=== PATIENT | male | born 1935 | race Hispanic/Latino ===

== ENCOUNTER 2021-01-30 07:39 | Day surgery (SDC) | payer OTHER ==
[2021-01-25 16:59] LABS: Albumin 3.6 g/dL (3.4-5.0); Bilirubin Direct 0.1 mg/dL (0-0.2); Bilirubin Total 0.3 mg/dL (0.2-1.0); Potassium 4.7 mmol/L (3.5-5.1); Protein, Total 8.3 g/dL (6.4-8.2)
[2021-01-25 17:03] LABS: Basophils % 0.4 % (0-1.3); Lymphocytes % 29.9 % (15.3-44.8); MPV 7.7 fL (7.6-11.3); RBC Red Blood Cell Count 3.86 M/uL (4.33-5.43)
--- NOTE | 2021-01-25 17:06 | RAD REPORT ---
EXAM DESCRIPTION: Brennen Velez (2 Views)01/25/2021 4:29 pm CLINICAL HISTORY: Preop gallbladder surgery COMPARISON: 2009 FINDINGS: The lungs appear clear of acute infiltrate. The heart is moderately enlarged IMPRESSION: No acute abnormalities displayed
--- NOTE | 2021-01-28 07:10 | EKG ---
Test Date: 2021-01-25 Test Time: 15:01:50 Nurse Monitoring: FRANCESCA MEASUREMENT RESULTS: Intervals: Rate: 76 OK: 344 QRSD: 138 QT: 426 QTc: 479 [place]: P: -4 OK: 344 QRS: -40 T: 7 INTERPRETIVE STATEMENTS: Sinus rhythm with 1st degree AV block with premature atrial complexes with aberrant conduction Left axis deviation Right bundle branch block Inferior infarct, age undetermined Abnormal ECG Compared to ECG 07/25/2009 18:19:22 Atrial premature complex(es) now present Aberrant conduction of supraventricular beat(s) now present Myocardial infarct finding still present Electronically Signed On 01-28-21 07:05:01 CDT by Star Lomas
[2021-01-30] MEDS ORDERED: CEFOXITIN/NS 1gm 1 GM/50 ML BAG ONE (08:29)
[2021-01-30] MEDS ORDERED: NA CHLORIDE 0.9% 1,000 ML ONE (08:29)
[2021-01-30] MEDS ORDERED: FENTANYL CITR 100 MCG/2 ML ONE (09:15)
[2021-01-30] MEDS ORDERED: LIDOCAINE 1% MPF 5 ML VIAL ONE (09:15)
[2021-01-30] MEDS ORDERED: ROCURONIUM 50 MG/5 ML VIAL IV ONE (09:15)
[2021-01-30] MEDS ORDERED: propofoL 200 MG/20 ML VIAL IV ONE (09:15)
[2021-01-30] MEDS ORDERED: ONDANSETRON 4 MG/2 ML VIAL ONE (10:02)
[2021-01-30] MEDS ORDERED: NS 0.9% VIAL 10 ML ONE (10:10)
[2021-01-30] MEDS ORDERED: EPHEDRINE SULF 50 MG/ML VIAL ONE (10:10)
--- NOTE | 2021-01-30 10:21 | P.BOP ---
Preoperative diagnosis: acute cholecystitis, symptomatic cholelithiasis Postoperative diagnosis: same Primary procedure: Laparoscopic cholecystectomy Shop Blacksmith: Jadyn Dunham ([place]) Estimated blood loss: <10cc Specimen: GB Findings: as above Anesthesia: General Complications: None Transferred to: Recovery Room Condition: Good
[2021-01-30] MEDS ORDERED: GLYCOPYRROLATE 0.2 MG/ML SYR ONE ×2 (10:29→10:30)
[2021-01-30] MEDS ORDERED: NEOSTIGMINE 1 MG/ML -5 ML ONE (10:30)
[2021-01-30 10:59] VITALS: O2SAT 95
[2021-01-30] MEDS ORDERED: CODEINE 30MG/APAP 300MG TAB ONE (12:04)
[2021-01-30 12:10] VITALS: TEMP 97.1
[2021-01-30 12:13] VITALS: BP 110/53
--- NOTE | 2021-01-30 12:23 | DS ---
Diagnoses: Acute cholecystitis, symptomatic cholelithiasis, right upper quadrant abdominal pain. Procedure: Laparoscopic cholecystectomy. Disposition: Home. Activity: As tolerated. No heavy lifting. Plan: Follow up in my office in 1 week. Call for appointment at [phone]. Keep area dry for 48 tawanna rs, then may shower. Keep Steri-Strip intact. Medications: Include Tylenol No.3 q.4 hours p.r.n. pain, Augmentin 875 p.o. q.12. NADJA/DARYN Voice ID: [id number] Report ID: [id number]
--- NOTE | 2021-01-30 12:23 | OP ---
Date of Procedure: 01/30/2021 Surgeon: Vijay Gross MD Shovel Oiler: ALLEN Pemberton. Preoperative Diagnosis: Acute cholecystitis, symptomatic cholelithiasis. Postoperative Diagnosis: Acute cholecystitis, symptomatic cholelithiasis. Procedure: Laparoscopic cholecystectomy. Estimated Blood Loss: Less than 10 mL. Specimen: Gallbladder. Anesthesia: General plus local. Indication: This is the case of an 85-year-old patient with recurrent epigastric right upper quadran t pain, diagnosed with acute cholecystitis and symptomatic cholelithiasis. The benefits, alternative s, and risks of laparoscopic possible open cholecystectomy were fully explained, which include, but n ot limited to infection, bleeding, damage to adjacent structures, anesthesia complication, choledocho lithiasis, bile leak, pancreatitis, VT, and even . He also understands this may not relieve any symptoms. He might need more than one surgical intervention. He understood, signed a consent. Procedure In Detail: The patient was brought to the operating room, placed in supine position. Anes thesia was done without complication. Abdominal area was prepped and draped in usual sterile fashion . Marcaine 0.5% was injected for local anesthetic followed by sharp incision of the skin in the supr aumbilical region. Incision was carried down to fascia, which was opened under direct vision. Perit oneum was encountered, opened under direct vision. Vicryl #1 placed inside the fascia. Ivy troca r was carefully introduced. Pneumoperitoneum was obtained. I placed 3 more trocars, 5 mm each one o f them, 1 in epigastric area and 2 in the right upper quadrant under direct visualization. This allo wed me to visualize the area of the gallbladder, looked all distended and edematous, so under direct visualization, we placed an Endo needle and aspirated partially the gallbladder. Needle was removed under direct visualization. A grasper was placed in the fundus of the gallbladder, another grasper i n the infundibulum, retracting the gallbladder in the inferolateral fashion, exposing the triangle of Calot and obtaining critical view. Cystic duct and cystic artery were clearly isolated, freed circu mferentially and a connection between those and the gallbladder were clearly identified. I proceeded to ligate those by using at least 3 clips proximal, 1 clip distal, ligation in middle. Same was don e with the cystic artery. No bile leak, no bleeding. The gallbladder was removed from liver using B ovie cauterizer and removed from abdominal cavity using EndoCatch through the umbilical incision. Th e area was fully inspected once again. The gallbladder fossa was also fully inspected with no bleedi ng at this moment. Clips were intact. At that moment, I proceeded to remove the trocars under direc t vision. Deflated the pneumoperitoneum. Closed the fascia with #1 Vicryl. Irrigated subcutaneous tissue, closed that with 3-0 chromic and skin with coreen. Sponge count and instrument counts corre ct. The patient tolerated the procedure well. The patient was sent to recovery in stable condition. NADJA/DARYN Voice ID: [id number] Report ID: [id number]
== END 2021-01-30 12:00 | disposition home or self-care (01) ==
LOC: OR 07:39
PROVIDERS: ATTEND Surgery
PROC: 0FT44ZZ Resection of Gallbladder, Percutaneous Endoscopic Approach (ICD-10-PCS; principal; 2021-01-30 09:30)
DX: K80.10 Calculus of gallbladder with chronic cholecystitis without obstruction (principal); Z20.822 Contact with and (suspected) exposure to COVID-19
CPT/HCPCS: 47562; 93005; 85025; 80048; 36415; 82150; 82947; 80076; 88304; 83690; 71046; U0003; J2704; J3010; J2710; J7030; J0694; J2405

== ENCOUNTER 2024-11-28 15:44 | Inpatient (IN) | payer OTHER ==
[2024-11-28] MEDS ORDERED: ACETAMINOPHEN 325 MG TABLET PO PRN (16:55)
[2024-11-28] MEDS ORDERED: DIPHENHYDRAMINE 25 MG TAB/CAP PO PRN (16:56)
[2024-11-28] MEDS ORDERED: POLYETHYL GLY 3350 17 GM/DOSE PO PRN (16:57)
[2024-11-28] MEDS ORDERED: ONDANSETRON 4 MG/2 ML VIAL IV PRN (16:57)
[2024-11-28] MEDS: PANTOPRAZOLE INJ 80 MG in NA CHLORIDE 0.9% 250 ML IV SCH ×2 (18:00→21:02)
[2024-11-28 18:50] LABS: Absolute Lymphocytes (CBC) 1.0 K/uL (0.7-4.9); Hematocrit 23.4 % (39.6-49.0); Hemoglobin 7.3 g/dL (13.6-17.9); MCH 30.0 pg (27.0-35.0); MCHC 31.3 g/dL (32.0-36.0); MCV 95.7 fL (80-100); MPV 8.8 fL (7.6-11.3); Nucleated RBC Absolute Count 0.0 (0-0); Nucleated Red Blood Cells % 0.0 % (0-0); RBC Red Blood Cell Count 2.45 M/uL (4.33-5.43); White Blood Count 12.20 thou/uL (4.3-10.9)
[2024-11-28 19:19] LABS: ALT/SGPT < 14 U/L (16-61); AST/SGOT < 10 U/L (15-37); Albumin 2.9 g/dL (3.4-5.0); Albumin/Globulin Ratio 1.0 (1.1-1.8); Alkaline Phosphatase 49 U/L (45-117); Anion Gap 11.9 mEq/L (5.0-15.0); BUN Blood Urea Nitrogen 56 mg/dL (7-18); Bilirubin Indirect, Calculated 0.1 mg/dL (0.2-0.8); Globulin 3.0 g/dL (2.3-3.5); Glucose Level 231 mg/dL (74-106); Magnesium 2.3 mg/dL (1.6-2.4); Potassium 4.9 mEq/L (3.5-5.1); Thyroid Stimulating Hormone 2.100 uIU/mL (0.358-3.740)
[2024-11-28 20:30] LABS: Blood Morphology Comment NOTED (NOT SEEN); Polychromasia SLIGHT; White Blood Cell Scan OK (OK)
--- NOTE | 2024-11-28 20:33 | RAD REPORT ---
EXAM: Chest Pa And Lat (2 Views) HISTORY: 89 years Male per md order COMPARISON: 01/25/2021 FINDINGS: LUNGS/PLEURA: The lungs are clear. No pleural effusions or pneumothorax. No pulmonary edema. CARDIAC/MEDIASTINUM: Stable enlargement. UPPER ABDOMEN: No significant abnormality. BONES: No acute abnormality. LINES/TUBES/OTHER: N/A IMPRESSION: No evidence of acute cardiopulmonary disease.
[2024-11-29] MEDS: FUROSEMIDE 20 MG/ 2ML VIAL IV SCH (01:37)
[2024-11-29] MEDS: NA CHLORIDE 0.9% 250 ML ONE ×2 (03:49→20:05)
[2024-11-29] MEDS: NA CHLORIDE 0.9% 250 ML IV ONE (03:52)
[2024-11-29] MEDS: NOREPINEPHRINE BITARTRATE/D5W 4 MG/250 ML KIT IV ONE (05:21)
[2024-11-29] MEDS: NOREPINEPHRINE 4 MG in D5W 250 ML IV SCH (05:25)
[2024-11-29] MEDS: OCTREOTIDE ACETATE 100 MCG/ML IV ONE (07:02)
[2024-11-29] MEDS: AMLODIPINE 2.5 MG TAB PO SCH (07:30)
[2024-11-29] MEDS: TAMSULOSIN 0.4 MG SR CAP PO SCH (07:30)
[2024-11-29] MEDS: NACHLORIDE 0.45% 1,000 ML IV SCH ×2 (08:13→16:47)
[2024-11-29 09:02] LABS: Absolute Lymphocytes (CBC) 3.1 K/uL (0.7-4.9); Hematocrit 26.0 % (39.6-49.0); Hemoglobin 8.6 g/dL (13.6-17.9); MCH 30.9 pg (27.0-35.0); MCHC 33.1 g/dL (32.0-36.0); MCV 93.3 fL (80-100); MPV 8.3 fL (7.6-11.3); Nucleated RBC Absolute Count 0.0 (0-0); Nucleated Red Blood Cells % 0.0 % (0-0); RBC Red Blood Cell Count 2.78 M/uL (4.33-5.43); White Blood Count 15.70 thou/uL (4.3-10.9)
[2024-11-29] MEDS: NA CHLORIDE 0.9% 1,000 ML ONE (11:53)
[2024-11-29] MEDS ORDERED: EPINEPHRINE 1 MG/ML VIAL ONE (12:20)
[2024-11-29] MEDS ORDERED: LIDOCAINE 1% MPF 5 ML VIAL ONE (12:33)
[2024-11-29] MEDS ORDERED: EPHEDRINE SULF 50 MG/ML VIAL ONE (12:34)
[2024-11-29] MEDS ORDERED: NS 0.9% VIAL 20 ML ONE (12:41)
[2024-11-29 15:49] LABS: Anion Gap 10.3 mEq/L (5.0-15.0); BUN Blood Urea Nitrogen 70.0 mg/dL (7-18); Glucose Level 159.0 mg/dL (74-106); Magnesium 2.4 mg/dL (1.6-2.4); Potassium 5.3 mEq/L (3.5-5.1)
[2024-11-29] MEDS: TAMSULOSIN 0.4 MG SR CAP PO ONE (16:54)
[2024-11-29 17:01] LABS: Hematocrit 24.0 % (39.6-49.0); Hemoglobin 7.8 g/dL (13.6-17.9)
--- NOTE | 2024-11-29 17:02 | P.PN ---
Subjective Date of Service: 11/29/24 Chief Complaint: SEVERE GI BLEED Subjective: Eunice WARD HAD SEVERE MELANOTIC STOOL AT HOME AND WEAKNESS AFTER HE ATE A VERY HOT PEPPER FOR A FEW DAYS. HE CAME TO OFFICE WITH WEAKNESS AND PAIN IN EPIG. HE HAD HG DOWN TO 7.3 GM. WE GAVE HIM TWO UNITS OF BLOOD. I CALLED DR. CASTAÑEDA. MOVED HIM TO ICU BP DROPPED. HE IS STABLE. HAD EGD AND FOUND TO HAVE MULTIPLE ULCERS. Review of Systems 10-point ROS is otherwise unremarkable General: Weakness, As per HPI Physical Examination - Vital Signs Temperature: 98.0 F Blood Pressure: 129/53 Pulse: 93 Respirations: 19 Pulse Ox (%): 100 - Physical Exam General: Mild distress, Moderate distress, Obese HEENT: Atraumatic, PERRLA, EOMI Neck: Supple, JVD not distended Respiratory: Clear to auscultation bilaterally, Normal air movement Cardiovascular: Regular rate/rhythm, Normal S1 S2 Gastrointestinal: Normal bowel sounds, No tenderness Musculoskeletal: No tenderness Integumentary: No rashes Neurological: Normal speech, Normal tone, Normal affect Lymphatics: No axilla or inguinal lymphadenopathy - Studies Laboratory Data (last 24 hrs) 11/29/24 11/29/24 11/29/24 15:25 08:50 08:50 WBC 15.70 H Hgb 8.6 L D Cancelled Hct 26.0 L Cancelled Plt Count 142 L APTT Sodium 143 Potassium 5.3 H BUN 70 H Creatinine 2.34 H Glucose 159 H Phosphorus 4.7 Magnesium 2.4 Total Bilirubin AST ALT Alkaline Phosphatase 11/29/24 11/28/24 11/28/24 06:45 18:30 18:30 WBC Cancelled Hgb Cancelled Hct Cancelled Plt Count Cancelled APTT 26.5 L Sodium 141 Potassium 4.9 BUN 56 H Creatinine 2.38 H Glucose 231 H Phosphorus 4.8 Magnesium 2.3 Total Bilirubin 0.3 AST < 10 L ALT < 14 L Alkaline Phosphatase 49 11/28/24 18:30 WBC 12.20 H Hgb 7.3 L Hct 23.4 L Plt Count 152 APTT Sodium Potassium BUN Creatinine Glucose Phosphorus Magnesium Total Bilirubin AST ALT Alkaline Phosphatase Medications List Reviewed: Yes Assessment And Plan - Current Problems (Diagnosis) (1) Acute upper GI bleed Current Visit: Yes Status: Acute Plan: PROTONIX IV DRIP SANDOSTATIN ONCE. ABOVE EGD DONE. STABLE FOR NOW. (2) Acute on chronic renal failure Current Visit: Yes Status: Acute Plan: IV HYDRATION. RAISE IV TO 100 ML PER HOUR. LAB DAILY. CBC BMP. (3) Hyperkalemia Current Visit: Yes Status: Acute
[2024-11-29] MEDS: PANTOPRAZOLE INJ 80 MG in NA CHLORIDE 0.9% 250 ML IV SCH (18:39)
[2024-11-30 01:04] LABS: Hematocrit 24.7 % (39.6-49.0); Hemoglobin 8.2 g/dL (13.6-17.9)
[2024-11-30 05:06] LABS: Absolute Lymphocytes (CBC) 1.8 K/uL (0.7-4.9); Hematocrit 23.5 % (39.6-49.0); Hemoglobin 8.0 g/dL (13.6-17.9); MCH 31.0 pg (27.0-35.0); MCHC 34.0 g/dL (32.0-36.0); MCV 91.3 fL (80-100); MPV 8.2 fL (7.6-11.3); Nucleated RBC Absolute Count 0.0 (0-0); Nucleated Red Blood Cells % 0.1 % (0-0); RBC Red Blood Cell Count 2.57 M/uL (4.33-5.43); White Blood Count 16.30 thou/uL (4.3-10.9)
[2024-11-30 06:32] VITALS: BMI 34.6
--- NOTE | 2024-11-30 17:48 | P.PN ---
Subjective Date of Service: 11/30/24 Chief Complaint: SEVERE GI BLEED Subjective: Improving HE IS LOT BETTER HG IS STILL DROPPING CORRECTING OVER TIME AFTER SEVERE BLEED. Review of Systems 10-point ROS is otherwise unremarkable Physical Examination - Vital Signs Temperature: 97.9 F Blood Pressure: 139/56 Pulse: 77 Respirations: 21 Pulse Ox (%): 93 - Physical Exam General: Mild distress, Obese HEENT: Atraumatic, PERRLA, EOMI Neck: Supple, JVD not distended Respiratory: Clear to auscultation bilaterally, Normal air movement Cardiovascular: Regular rate/rhythm, Normal S1 S2 Gastrointestinal: Normal bowel sounds, No tenderness Musculoskeletal: No tenderness Integumentary: No rashes Neurological: Normal speech, Normal tone, Normal affect Lymphatics: No axilla or inguinal lymphadenopathy - Studies Laboratory Data (last 24 hrs) 11/30/24 11/30/24 04:11 00:25 WBC 16.30 H Hgb 8.0 L 8.2 L Hct 23.5 L 24.7 L Plt Count 118 L Medications List Reviewed: Yes Assessment And Plan - Current Problems (Diagnosis) (1) Acute upper GI bleed Current Visit: Yes Status: Acute Plan: PROTONIX IV DRIP SANDOSTATIN ONCE. ABOVE EGD DONE. STABLE FOR NOW. STABLE MOVE TO THE FLOOR. DC IN AM IF STABLE. HE WANTS TO GO HOME. (2) Acute on chronic renal failure Current Visit: Yes Status: Acute Plan: IV HYDRATION. RAISE IV TO 100 ML PER HOUR. LAB DAILY. CBC BMP. (3) Hyperkalemia Current Visit: Yes Status: Acute
[2024-11-30] MEDS ORDERED: NA CHLORIDE 0.9% 0 ML ONE (19:28)
[2024-11-30 20:19] VITALS: O2SAT 97
[2024-12-01] MEDS: NA CHLORIDE 0.9% 250 ML ONE (00:15)
[2024-12-01 07:20] LABS: Absolute Lymphocytes (CBC) 1.5 K/uL (0.7-4.9); Hematocrit 25.3 % (39.6-49.0); Hemoglobin 8.5 g/dL (13.6-17.9); MCH 30.7 pg (27.0-35.0); MCHC 33.5 g/dL (32.0-36.0); MCV 91.7 fL (80-100); MPV 7.8 fL (7.6-11.3); Nucleated RBC Absolute Count 0.0 (0-0); Nucleated Red Blood Cells % 0.1 % (0-0); RBC Red Blood Cell Count 2.76 M/uL (4.33-5.43); White Blood Count 9.80 thou/uL (4.3-10.9)
[2024-12-01 07:33] LABS: Anion Gap 5.4 mEq/L (5.0-15.0); BUN Blood Urea Nitrogen 35.0 mg/dL (7-18); Glucose Level 119.0 mg/dL (74-106); Potassium 4.4 mEq/L (3.5-5.1)
[2024-12-01 08:00] VITALS: BP 132/63; TEMP 98.4
[2024-12-01] MEDS: PANTOPRAZOLE 40MG TABLET PO SCH (09:05)
[2024-12-03 15:30] LABS: 1,25 Dihydroxy Vitamin D3 31 pg/mL; Vitamin D 1,25-Dihydroxy Total 31 pg/mL (18-72); Vitamin D,1,25-OH2, D2 <8 pg/mL
--- NOTE | 2024-12-07 21:39 | P.DS ---
Admission Date: 11/29/24 Discharge Date: 12/07/24 Disposition: ROUTINE DISCHARGE Discharge Condition: FAIR Reason for Admission: SEVERE GI BLEED - Problems (1) Acute upper GI bleed Status: Acute (2) Acute on chronic renal failure Status: Acute (3) Hyperkalemia Status: Acute Hospital Course: RAYO ZHAOS HOT PEPPERS. HE WAS EATING A VERY HOT PEPPER FOR A FEW DAYS AND COMES WITH PAIN IN EPIG, WEAKNESS, HG OF 7 AND HAD TO BE ADMITTED TO HOSPITAL. LATER I TRANSFERRED HIM TO ICU FOR BP DROP, IV LEVOPHED WAS STARTED, HE RECEIVED TWO UITS OF BLOOD. EGD SHOWED SEVRE ULCERATIONS AND H PYOLIRE INFECTION. DR. MELVIN TOOK CARE OF INFECTION. HE WAS SENT HOME IN STABLE CONDITION ON PROTONIX ORALLY. Vital Signs/Physical Exam: Temp Pulse Resp BP Pulse Ox 98.4 F 79 18 132/63 95 12/01/24 07:59 12/01/24 09:05 12/01/24 07:59 12/01/24 09:05 12/01/24 07:59 Laboratory Data at Discharge: WBC 9.80 thou/uL (4.3-10.9) 12/01/24 07:06 Hgb 8.5 g/dL (13.6-17.9) L 12/01/24 07:06 Hct 25.3 % (39.6-49.0) L 12/01/24 07:06 Plt Count 111 thou/uL (152-406) L 12/01/24 07:06 APTT 26.5 SECONDS (27.2-37.4) L 11/28/24 18:30 Sodium 142 mEq/L (136-145) 12/01/24 07:06 Potassium 4.4 mEq/L (3.5-5.1) 12/01/24 07:06 BUN 35 mg/dL (7-18) H 12/01/24 07:06 Creatinine 1.27 mg/dL (0.70-1.30) 12/01/24 07:06 Glucose 119 mg/dL (74-106) H 12/01/24 07:06 Phosphorus 4.7 mg/dL (2.5-4.9) 11/29/24 15:25 Magnesium 2.4 mg/dL (1.6-2.4) 11/29/24 15:25 Total Bilirubin 0.3 mg/dL (0.2-1.0) 11/28/24 18:30 AST < 10 U/L (15-37) L 11/28/24 18:30 ALT < 14 U/L (16-61) L 11/28/24 18:30 Alkaline Phosphatase 49 U/L (45-117) 11/28/24 18:30 Home Medications: Furosemide [Lasix] 40 mg PO DAILY 06/19/11 Glimepiride [Amaryl] 4 mg PO DAILY 06/19/11 allopurinoL [Zyloprim*] 100 mg PO DAILY 06/19/11 Amlodipine Besylate [Norvasc] 2.5 mg PO DAILY 01/25/21 Dulaglutide [Trulicity] 0.75 mg SQ TU 01/25/21 Finasteride [Proscar*] 5 mg PO DAILY 01/25/21 Pravastatin Sodium 80 mg PO DAILY 01/25/21 Tamsulosin HCl 0.4 mg PO DAILY 01/25/21 Empagliflozin [Jardiance] 25 mg PO DAILY 11/28/24 Naltrexone HCl 25 mg PO BID 11/28/24 Pantoprazole [Protonix Tab*] 40 mg PO BIDAC #60 tab 12/01/24 New Medications: Pantoprazole [Protonix Tab*] 40 mg PO BIDAC #60 tab Followup: Kobe Ward MD [Primary Care Provider] - 1 Week Yonny Melvin MD [ACTIVE - CAN ADMIT] - 1 Week
== END 2024-12-01 12:34 | disposition home or self-care (01) | DRG 378 ==
LOC: 2ND 15:44 → 3RD-ICU 11-29 05:15 → OBSVTOIN 11-29 08:02 → 2ND 11-30 20:34
PROVIDERS: ADMIT Internal Medicine; ATTEND Internal Medicine
PROC: 30233N1 Transfusion of Nonautologous Red Blood Cells into Peripheral Vein, Percutaneous Approach (ICD-10-PCS; 2024-11-28)
PROC: 0DB78ZX Excision of Stomach, Pylorus, Via Natural or Artificial Opening Endoscopic, Diagnostic (ICD-10-PCS; 2024-11-29)
PROC: 0T9B70Z Drainage of Bladder with Drainage Device, Via Natural or Artificial Opening (ICD-10-PCS; 2024-11-29)
PROC: 0DB68ZX Excision of Stomach, Via Natural or Artificial Opening Endoscopic, Diagnostic (ICD-10-PCS; principal; 2024-11-29 12:30)
DX: K25.0 Acute gastric ulcer with hemorrhage (principal); I42.0 Dilated cardiomyopathy; N17.9 Acute kidney failure, unspecified; K29.51 Unspecified chronic gastritis with bleeding; K26.4 Chronic or unspecified duodenal ulcer with hemorrhage; E87.5 Hyperkalemia; I10 Essential (primary) hypertension; I25.10 Atherosclerotic heart disease of native coronary artery without angina pectoris; M19.90 Unspecified osteoarthritis, unspecified site; E11.51 Type 2 diabetes mellitus with diabetic peripheral angiopathy without gangrene; E78.5 Hyperlipidemia, unspecified; Z88.8 Allergy status to other drugs, medicaments and biological substances
CPT/HCPCS: 36415; 36430; 71046; 80048; 80076; 82607; 82652; 82947; 83735; 84100; 84443; 85014; 85018; 85025; 85379; 85730; 86850; 86900; 86901; 86920; 88305; 88312; 93005; 97116; 97161; 97530; A4216; G0378; J0171; J1938; J2003; J2354; J2470; J2704; J7030; J7050; J7060; P9016

== ENCOUNTER 2024-12-09 12:23 | Emergency (ER) | payer OTHER ==
[2024-12-09 13:37] LABS: PT Prothrombin Time 16.4 SECONDS (10-13.0); Protime INR 1.47
[2024-12-09 13:48] LABS: ALT/SGPT 168.0 U/L (16-61); AST/SGOT 195.0 U/L (15-37); Albumin 2.9 g/dL (3.4-5.0); Albumin/Globulin Ratio 1.0 (1.1-1.8); Alkaline Phosphatase 43.0 U/L (45-117); Anion Gap 13.6 mEq/L (5.0-15.0); BUN Blood Urea Nitrogen 65.0 mg/dL (7-18); Bilirubin Indirect, Calculated 0.5 mg/dL (0.2-0.8); Globulin 2.9 g/dL (2.3-3.5); Glucose Level 163.0 mg/dL (74-106); Lipase 23.0 U/L (13-75); Magnesium 2.5 mg/dL (1.6-2.4); NT PRO-BNP 21060.0 pg/mL (<450); Potassium 4.6 mEq/L (3.5-5.1)
[2024-12-09 13:54] LABS: Troponin High Sensitivity 625.0 pg/mL (<58.9)
[2024-12-09] MEDS ORDERED: PANTOPRAZOLE INJ 80 MG in NA CHLORIDE 0.9% 250 ML IV SCH (14:10)
[2024-12-09] MEDS ORDERED: PANTOPRAZOLE 40 MG INJ ONE (14:12)
[2024-12-09 14:25] LABS: Absolute Lymphocytes (CBC) 1.2 K/uL (0.7-4.9); Hematocrit 17.7 % (39.6-49.0); MCH 29.0 pg (27.0-35.0); MCHC 32.0 g/dL (32.0-36.0); MCV 90.7 fL (80-100); MPV 7.3 fL (7.6-11.3); Nucleated RBC Absolute Count 0.1 (0-0); Nucleated Red Blood Cells % 0.6 % (0-0); RBC Red Blood Cell Count 1.95 M/uL (4.33-5.43); White Blood Count 12.40 thou/uL (4.3-10.9)
[2024-12-09 14:27] LABS: Hemoglobin 5.7 g/dL (13.6-17.9)
[2024-12-09] MEDS ORDERED: NA CHLORIDE 0.9% 250 ML ONE ×2 (14:46→18:25)
--- NOTE | 2024-12-09 15:27 | RAD REPORT ---
EXAMINATION: Abdomen Pelvis Wo Contrast CLINICAL INDICATION: Male, 89 years old.GI bleed TECHNIQUE: CTA abdomen and pelvis was performed, with and without IV contrast, as per department prot ocol. Axial, sagittal and coronal reconstructions were obtained. MIPS were created. One or more of the following dose reduction techniques were used: Automated exposure control, adjustment of the mA a nd/or kV according to the patient size, and/or iterative reconstruction. Unless otherwise specified, incidental findings do not require dedicated imaging follow-up. [id number]. COMPARISON: No prior exams FINDINGS: The lack of intravenous contrast limits the sensitivity of this exam for evaluation of solid visceral organs, vascular structures, and retroperitoneum. LOWER CHEST: Bilateral pleural effusions and associated atelectasis.Mild cardiomegaly. Severe coronar y artery calcifcations. Aortic valve and mitral annular calcifications. UPPER GI: No significant abnormality. LIVER: No significant focal abnormality. GALLBLADDER/BILE DUCTS: Cholecystectomy.? PANCREAS: No mass, ductal dilation, or casey-pancreatic fluid. SPLEEN: Unremarkable. ADRENALS: No adrenal masses. KIDNEYS AND URETERS: No hydronephrosis.No suspicious renal mass.No renal calculi.No ureteral calculi. ABDOMINAL AORTA AND OTHER VESSELS: Moderate atherosclerotic changes without aortic aneurysm. PERITONEUM: No abnormal free fluid. No free air. LYMPH NODES: No pathologic lymphadenopathy. ABDOMINAL WALL: Unremarkable SMALL BOWEL/COLON: Small bowel has normal course and caliber. No colonic wall thickening or pericolon ic inflammatory changes.Normal appendix. Mild diverticulosis without diverticulitis. URINARY BLADDER: Underdistended but grossly unremarkable. REPRODUCTIVE ORGANS: No pathologic process. MUSCULOSKELETAL: Grade 1 anterolisthesis of L4 and L5. Scattered degenerative changes are present in the spine. ADDITIONAL FINDINGS: None. IMPRESSION: No acute findings within the abdomen or pelvis. No evidence of active gastrointestinal bleeding. Incidental findings as noted above.
--- NOTE | 2024-12-09 15:52 | EDPHYS ---
Physician Documentation [facility] Name: Ezequiel Lemus Age: 89 yrs Sex: Male : 1935 Arrival Date: 12/09/2024 Time: 12:23 Bed 7 Private MD: ED Physician Jose Benítez HPI: 12/09 14:29 This 89 yrs old Male presents to ER via Wheelchair with complaints of Abnormal sp3 Lab Results. 14:29 89-year-old male with history of diabetes, hypertension, hyperlipidemia, recent GI sp3 bleed and was taken off of Plavix and required and intervention for probable peptic ulcer bleed and also required multiple units of blood transfusion. Patient was seen by Dr. Quispe. Patient is now back in the ED for recurrent drop in hemoglobin to 5.[address] Ward's office his PCP. He referred him here for further management. Patient endorses melena but no bright red blood per rectum. No vomiting currently. He denies fever, headache, chest pain but does endorse some shortness of breath. No syncope, bleeding elsewhere or rash noted. ROS otherwise negative.. Historical: - Allergies: 12:35 No Known Allergies; me1 - PMHx: 12:35 Diabetes mellitus; Hypertensive disorder; Hypercholesterolemia; Coronary me1 atherosclerosis; 12:39 Gastroesophageal reflux disease; h pylori; me1 12:40 gastric ulcer; Diverticulitis; me1 - PSHx: 12:35 Coronary Angioplasty; Stented artery; Cholecystectomy; Repair of inguinal hernia; me1 Operative procedure on knee; - Immunization history:: Adult Immunizations up to date. - Infectious Disease History:: Denies. - Social history:: Smoking status: Patient denies any tobacco usage or history of. ROS: 14:30 Constitutional: Negative for fever, chills, and weight loss, Eyes: Negative for injury, sp3 pain, redness, and discharge, ENT: Negative for injury, pain, and discharge, Neck: Negative for injury, pain, and swelling, Cardiovascular: Negative for chest pain, palpitations, and edema, MS/Extremity: Negative for injury and deformity, Skin: Negative for injury, rash, and discoloration, Neuro: Negative for headache, weakness, numbness, tingling, and seizure, Psych: Negative for depression, anxiety, suicide ideation, homicidal ideation, and hallucinations, Allergy/Immunology: Negative for hives, rash, and allergies, Endocrine: Negative for neck swelling, polydipsia, polyuria, polyphagia, and marked weight changes, 14:30 All other systems are negative, Exam: 14:30 Constitutional: This is a well developed, well nourished patient who is awake, alert, sp3 and in no acute distress. Head/Face: Normocephalic, atraumatic. Eyes: Pupils equal round and reactive to light, extra-ocular motions intact. Lids and lashes normal. Conjunctiva and sclera are non-icteric and not injected. Cornea within normal limits. Periorbital areas with no swelling, redness, or edema. Neck: Trachea midline, no thyromegaly or masses palpated, and no cervical lymphadenopathy. Supple, full range of motion without nuchal rigidity, or vertebral point tenderness. No Meningismus. Chest/axilla: Normal chest wall appearance and motion. Nontender with no deformity. No lesions are appreciated. Respiratory: Lungs have equal breath sounds bilaterally, clear to auscultation and percussion. No rales, rhonchi or wheezes noted. No increased work of breathing, no retractions or nasal flaring. Back: No spinal tenderness. No costovertebral tenderness. Full range of motion. Skin: Warm, dry with normal turgor. Normal color with no rashes, no lesions, and no evidence of cellulitis. MS/ Extremity: Pulses equal, no cyanosis. Neurovascular intact. Full, normal range of motion. Neuro: Awake and alert, GCS 15, oriented to person, place, time, and situation. Cranial nerves II-XII grossly intact. Motor strength 5/5 in all extremities. Sensory grossly intact. Cerebellar exam normal. Normal gait. Psych: Awake, alert, with orientation to person, place and time. Behavior, mood, and affect are within normal limits. 14:30 Cardiovascular: Rate: tachycardic, 14:30 Abdomen/GI: Soft nontender nondistended., 14:45 ECG was reviewed by the Attending Physician. EKG demonstrates atrial fibrillation at 72 sp3 bpm with right bundle branch block and nonspecific diffuse ST/T changes without evidence of acute ischemia. Vital Signs: 12:32 BP 105 / 52; Pulse 83; Resp 19; Temp 98.2; Pulse Ox 97% ; Weight 97.07 kg; Height 5 ft. me1 5 in. ; Pain 0/10; 14:32 BP 110 / 58; Pulse 77; Pulse Ox 100% on R/A; ap3 15:10 BP 102 / 53; Pulse 79; Resp 21 S; Temp 97.7(O); Pulse Ox 97% on R/A; aa5 15:27 BP 93 / 52; Pulse 70; Resp 20 S; Temp 97.8(O); Pulse Ox 99% on R/A; aa5 16:50 BP 110 / 63; Pulse 74; Resp 16 S; Pulse Ox 96% on R/A; aa5 17:00 BP 89 / 53; Pulse 75; Resp 16 S; Pulse Ox 95% on R/A; aa5 17:12 BP 110 / 63; Pulse 70; Resp 16 S; Pulse Ox 100% on R/A; aa5 18:03 BP 103 / 58; Pulse 71; Resp 18 S; Pulse Ox 98% on R/A; aa5 19:00 BP 131 / 80; Pulse 74; Resp 22; Pulse Ox 95% ; cp4 20:00 BP 100 / 50; Pulse 77; Resp 22; Pulse Ox 95% ; cp4 20:54 BP 107 / 55; Pulse 79; Resp 22; Pulse Ox 96% ; cp4 12:32 Body Mass Index 35.61 (97.07 kg, 165.1 cm) me1 12:32 Pain Scale: Adult me1 MDM: 12:46 Medical Screening Exam initiated sp3 14:32 Differential diagnosis: gastritis. Data reviewed: vital signs, nurses notes, old sp3 medical records, lab test result(s), EKG, radiologic studies. ED course: 89-year-old male with PMH above now with recurrent bleeding and hypotension, tachycardia and low hemoglobin. Differential diagnosis includes recurrent peptic ulcer bleed, recurrent other GI bleed, gastroenteritis, anemia induced cardiac ischemia, acute renal failure, among others. Hemoglobin is a 5.7 we have already ordered 2 units PRBCs. I discussed the case with Dr. Quispe who states that he can no longer offer any other services here and will possibly need IR for a probable lower GI bleed. He recommends transferring to [facility] for further management. Full workup pending including CT abdomen pelvis angiograms.. 16:37 ED course: Discussed with [facility] who deferred to [facility]. Discussed with the [address] GI team and hospitalist who accepted the patient. Again I also spoke to Dr. Quispe who deferred as well. We will give 40 mg of Lasix given elevated BNP. I believe the troponin is anemia induced as opposed to obstructive ischemic effect. EKG demonstrates no ST elevations. The patient has no chest pain.. 12/09 12:45 Order name: Type And Screen [facility] 12/09 12:45 Order name: Basic Metabolic Panel; Complete Time: 14:23 [facility] 12/09 12:45 Order name: CBC with Diff; Complete Time: 14:31 [facility] 12/09 12:45 Order name: LFT's; Complete Time: 14:23 [facility] 12/09 12:45 Order name: Magnesium; Complete Time: 14:23 [facility] 12/09 12:45 Order name: NT PRO-BNP; Complete Time: 14:23 [facility] 12/09 12:45 Order name: PT-INR; Complete Time: 14:23 [facility] 12/09 12:45 Order name: Troponin HS; Complete Time: 14:23 [facility] 12/09 12:45 Order name: Lipase; Complete Time: 14:23 [facility] 12/09 13:43 Order name: Packed RBC Leukored [facility] 12/09 14:37 Order name: Pelvis Angio; Complete Time: 15:29 [facility] 12/09 14:37 Order name: Abdomen Angio; Complete Time: 15:29 [facility] 12/09 14:37 Order name: Abdomen ; Complete Time: 15:29 [facility]MS 12/09 12:45 Order name: EKG; Complete Time: 12:45 [facility] 12/09 12:45 Order name: Cardiac monitoring; Complete Time: 14:13 [facility] 12/09 12:45 Order name: EKG - Nurse/Tech; Complete Time: 14: [facility] 12/09 12:45 Order name: IV Saline Lock; Complete Time: 13: [facility] 12/09 12:45 Order name: Labs collected and sent; Complete Time: 13: [facility] 12/09 12:45 Order name: O2 Per Protocol; Complete Time: 14:13 [facility] 12/09 12:45 Order name: O2 Sat Monitoring; Complete Time: 14: [facility] 12/09 12:45 Order name: Transfuse: 2 units PRBCs; Complete Time: 15:17 sp3 12/09 12:46 Order name: NPO; Complete Time: 14:23 sp3 Administered Medications: 14:23 Drug: Pantoprazole IVP 40 mg IVP once Route: IVP; Site: right antecubital; ap3 14:30 Follow up: Response: No adverse reaction aa5 15:17 Drug: Pantoprazole IV 8 mg/hr IV at 25 ml/hr continuous; (Standard dilution is 80 mg in ap3 250 mL NS) Route: IV; Rate: 25 ml/hr; Site: left wrist; 20:55 Follow up: IV Status: Infusion continued upon transfer cp4 16:53 Drug: Furosemide IVP 40 mg IVP once; give over 2 minutes Route: IVP; Site: left aa5 antecubital; 17:00 Follow up: Response: No adverse reaction aa5 Disposition Summary: 12/09/24 15:51 Transfer Ordered Notes: Transfer Location: [facility] sp3 Reason: Higher level of care sp3 Condition: Stable sp3 Problem: an acute exacerbation sp3 Symptoms: have worsened sp3 Accepting Physician: [facility] and hospitalist at [facility] (12/09/24 20:55) cp4 Diagnosis - Lower GI bleed, critical anemia, hypovolemia sp3 Forms: - Medication Reconciliation Form sp3 - SBAR form sp3 Critical care time excluding procedures: 14:33 Critical care time: Bedside Care: 10 minutes, Consultation: 10 minutes, Family sp3 Intervention: 10 minutes. Total time: 30 minutes Signatures: Dispatcher [employer] EDChitra Taylor RN RN aa5 Marleni Webster RN RN ap3 Jose Benítez MD MD sp3 Pearl Buckley RN RN me1 Elaine Rincon cp4 Corrections: (The following items were deleted from the chart) 13:44 12:48 ABO/RH typing ordered. EDMS EDMS 13:44 12:49 Antibody Screen ordered. EDMS EDMS 13:45 12:45 PACKED RBC LEUKORED+BB.LAB.BRZ ordered. EDMS EDMS 14:42 14:32 Abdomen Pelvis W Con+CT.RAD.BRZ ordered. EDMS EDMS 20:55 15:51 TBJacqui GI and hospitalist at [facility] receiving sp3 cp4
--- NOTE | 2024-12-09 15:52 | ER ---
Nurse's Notes [facility] Name: Ezequiel Lemus Age: 89 yrs Sex: Male : 1935 Arrival Date: 12/09/2024 Time: 12:23 Bed 7 Private MD: Diagnosis: Lower GI bleed, critical anemia, hypovolemia Presentation: 12/09 12:32 Chief complaint: Patient's son or daughter states: sent by Dr Ward for low hgb. Per me1 son hgb was 5.9. Reports SOB with exertion. Denies CP. Coronavirus screen: At this time, the client does not indicate any symptoms associated with coronavirus-19. Ebola Screen: No symptoms or risks identified at this time. Initial Sepsis Screen: Does the patient meet any 2 criteria? No. Patient's initial sepsis screen is negative. Does the patient have a suspected source of infection? No. Patient's initial sepsis screen is negative. Risk Assessment: Do you want to hurt yourself or someone else? Patient reports no desire to harm self or others. Onset of symptoms is unknown. 12:32 Method Of Arrival: Wheelchair me1 12:32 Acuity: JEANA 3 me1 Historical: - Allergies: 12:35 No Known Allergies; me1 - PMHx: 12:35 Diabetes mellitus; Hypertensive disorder; Hypercholesterolemia; Coronary me1 atherosclerosis; 12:39 Gastroesophageal reflux disease; h pylori; me1 12:40 gastric ulcer; Diverticulitis; me1 - PSHx: 12:35 Coronary Angioplasty; Stented artery; Cholecystectomy; Repair of inguinal hernia; me1 Operative procedure on knee; - Immunization history:: Adult Immunizations up to date. - Infectious Disease History:: Denies. - Social history:: Smoking status: Patient denies any tobacco usage or history of. Screenin:30 [facility] ED Fall Risk Assessment (Adult) History of falling in the last 3 months, aa5 including since admission No falls in past 3 months (0 pts) Confusion or Disorientation No (0 pts) Intoxicated or Sedated No (0 pts) Impaired Gait Yes (1 pt) Mobility Assist Device Used Yes (1 pt) Altered Elimination No (0 pt) Score/Fall Risk Level 0 - 2 = Low Risk Oriented to surroundings, Maintained a safe environment, Educated pt \\T\\ family on fall prevention, incl call for assistance when getting out of bed, Assessed \\T\\ reinforced patient's understanding of fall precautions. Abuse screen: Denies threats or abuse. Nutritional screening: No deficits noted. Tuberculosis screening: No symptoms or risk factors identified. Assessment: 14:28 General: Appears uncomfortable, Behavior is calm, cooperative. Pain: Denies pain. aa5 Neuro: Level of Consciousness is awake, alert, obeys commands, Oriented to person, place, time, situation. Cardiovascular: Heart tones S1 S2 present Rhythm is irregular. Respiratory: Reports shortness of breath at rest on exertion Airway is patent Respiratory effort is even, unlabored, Respiratory pattern is regular, symmetrical, Breath sounds are clear bilaterally. GI: Abdomen is round obese, Bowel sounds present X 4 quads. Abd is soft and non tender X 4 quads. Parent/caregiver reports the patient having "dark stools". : No signs and/or symptoms were reported regarding the genitourinary system. EENT: No signs and/or symptoms were reported regarding the EENT system. Derm: Skin is dry, Skin is pale, Skin temperature is warm. Musculoskeletal: No signs and/or symptoms reported regarding the musculoskeletal system. 14:28 Reassessment: Pt's family reports pt stopped taking Plavix approximately 1 week ago. . aa5 14:30 Reassessment: Pt to CT scan. . aa5 14:54 Reassessment: RBC consent form obtained, signed by pt's daughter. . aa5 15:08 Reassessment: Pt back from CT scan . aa5 15:27 Reassessment: RBC unit #1 started at 1512 at 50 cc/hr, no adverse reaction noted or aa5 reported, pt tolerating well. RBC unit now infusing at 150cc/hr. See transfusion record for complete documentation and complete VS. . 18:15 Reassessment: RBC unit # 1 completed. aa5 18:53 Reassessment: RBC unit # 2 started at 1838 at 50cc/hr, pt tolerating well. No adverse aa5 reaction noted or reported. RBC unit now infusing at 150cc/hr. See transfusion record for complete documentation and complete VS. . 19:19 Reassessment: Patient appears in no apparent distress at this time. No changes from cp4 previously documented assessment. Patient and/or family updated on plan of care and expected duration. Pain level reassessed. Patient is alert, oriented x 3, equal unlabored respirations, skin warm/dry/pink. Reassessment: Attempted to call report, no answer. 19:25 Reassessment: Attempted to call report Put on hold and hung up on. cp4 19:25 Reassessment: Attempt to call report no answer. cp4 19:53 Reassessment: Called report to JOE Cox. Nurse states she cannot take blood transfusing cp4 and transferred me to the charge nurse. Charge nurse stated she needed to talk to her electronic gaming device supervisor before allowing the transfer. Reassessment: Attempted to contact warehouse shipping supervisor at receiving facility but was told they did not know the phone number. Charge nurse notified. Vital Signs: 12:32 BP 105 / 52; Pulse 83; Resp 19; Temp 98.2; Pulse Ox 97% ; Weight 97.07 kg; Height 5 ft. me1 5 in. ; Pain 0/10; 14:32 BP 110 / 58; Pulse 77; Pulse Ox 100% on R/A; ap3 15:10 BP 102 / 53; Pulse 79; Resp 21 S; Temp 97.7(O); Pulse Ox 97% on R/A; aa5 15:27 BP 93 / 52; Pulse 70; Resp 20 S; Temp 97.8(O); Pulse Ox 99% on R/A; aa5 16:50 BP 110 / 63; Pulse 74; Resp 16 S; Pulse Ox 96% on R/A; aa5 17:00 BP 89 / 53; Pulse 75; Resp 16 S; Pulse Ox 95% on R/A; aa5 17:12 BP 110 / 63; Pulse 70; Resp 16 S; Pulse Ox 100% on R/A; aa5 18:03 BP 103 / 58; Pulse 71; Resp 18 S; Pulse Ox 98% on R/A; aa5 19:00 BP 131 / 80; Pulse 74; Resp 22; Pulse Ox 95% ; cp4 20:00 BP 100 / 50; Pulse 77; Resp 22; Pulse Ox 95% ; cp4 20:54 BP 107 / 55; Pulse 79; Resp 22; Pulse Ox 96% ; cp4 12:32 Body Mass Index 35.61 (97.07 kg, 165.1 cm) me1 12:32 Pain Scale: Adult me1 ED Course: 12:29 Patient arrived in ED. cj3 12:33 Jose Benítez MD is Attending Physician. sp3 12:35 Triage completed. me1 12:40 Arm band placed on Patient placed in waiting room. me1 13:18 Initial lab(s) drawn, by bundle tier and labeler, sent to lab. Inserted saline lock: 20 gauge in right ts3 antecubital area, using aseptic technique. Blood collected. Flushed with 10 mL NS. 14:13 EKG done, by vending service technician. ts3 14:17 Marleni Webster, RN is Primary Nurse. ap3 14:28 Patient has correct armband on for positive identification. Placed in gown. Bed in low aa5 position. Call light in reach. Side rails up X2. Client placed on continuous cardiac and pulse oximetry monitoring. NIBP monitoring applied. cardiac monitor technician on. Pulse ox on. NIBP on. 14:52 Pelvis Angio In Process Unspecified. EDMS 14:52 Abdomen Angio In Process Unspecified. EDMS 14:52 Abdomen In Process Unspecified. EDMS 15:10 Inserted saline lock: 22 gauge in left wrist, using aseptic technique. Flushed with 10 aa5 mL NS. 15:31 initiated a transfer with Rosana from the [facility]. eb 16:00 connected the GI environmental science professor for [facility] with Dr. Benítez for patient transfer eb consultation. 16:12 connected the GI environmental science professor for [facility] with Dr. Benítez for patient transfer eb consultation. 16:34 connected the hospitalist environmental science professor for [facility] for patient transfer consultation. eb 18:12 Primary Nurse role handed off by Marleni Webster RN aa5 18:12 Chitra Summers, JOE is Primary Nurse. aa5 18:32 administrative approval given by Rosana Ferguson Rn/ patient has been accepted to [facility] room 951/ Dr. Gene Zuniga has accepted the patient in transfer/ report to be called to [phone]. 18:49 No provider procedures requiring assistance completed. aa5 19:00 Report given to Elaine Morales RN. aa5 19:41 Primary Nurse role handed off by Chitra Summers, JOE dr5 20:23 called [facility] for transport talked to Therese. sp 20:54 Provided Education on: Blood Transfusion. cp4 20:54 Patient transferred, IV remains in place. cp4 Administered Medications: 14:23 Drug: Pantoprazole IVP 40 mg IVP once Route: IVP; Site: right antecubital; ap3 14:30 Follow up: Response: No adverse reaction aa5 15:17 Drug: Pantoprazole IV 8 mg/hr IV at 25 ml/hr continuous; (Standard dilution is 80 mg in ap3 250 mL NS) Route: IV; Rate: 25 ml/hr; Site: left wrist; 20:55 Follow up: IV Status: Infusion continued upon transfer cp4 16:53 Drug: Furosemide IVP 40 mg IVP once; give over 2 minutes Route: IVP; Site: left aa5 antecubital; 17:00 Follow up: Response: No adverse reaction aa5 Medication: 18:50 VIS not applicable for this client. aa5 Output: 18:20 Urine: 600ml (Voided); Total: 600ml. aa5 Outcome: 15:51 ER care complete, transfer ordered by . sp3 20:54 Transferred by ground EMS to [facility], Transfer form completed. cp4 X-rays sent w/ patient. 20:54 Condition: stable 20:54 Instructed on the need for transfer, 20:55 Patient left the ED. cp4 Signatures: Dispatcher [employer] EDMS Nazia Granados Audri, RN RN aa5 Marleni Webster RN RN ap3 Evelyn Arredondo Setul, MD MD sp3 Pearl Buckley RN RN me1 Elaine Rincon cp4 Dewayne Quintero, CARD SERVICES SPECIALIST-C CARD SERVICES SPECIALIST-Cdr5 Tigist Glynn 3 Jazlyn Abbott ts3 Corrections: (The following items were deleted from the chart) 15:32 15:12 Reassessment: RBC unit #1 started at 50 cc/hr, no adverse reaction noted or aa5 reported, pt tolerating well. RBC unit now infusing at 150cc/hr. See transfusion record for complete documentation and complete VS. . aa5 17:25 17:23 BP 110 / 63; Pulse 70bpm; Resp 16bpm; Spontaneous; Pulse Ox 100% RA; aa5 aa5 18:47 14:20 Reassessment: Pt to CT scan. . aa5 aa5 12/10 13:58 12/09 18:45 Reassessment: RBC unit # 1 started at 1638 at 50cc/hr, pt tolerating well. aa5 . aa5
[2024-12-09] MEDS ORDERED: FUROSEMIDE 40 MG/4 ML VIAL ONE (16:47)
[2024-12-09 21:05] VITALS: TEMP 97.8
[2024-12-09 21:17] VITALS: BP 107/55; O2SAT 96
== END 2024-12-09 20:55 | disposition short-term general hospital (02) ==
LOC: ER 12:23
PROC: 30233N1 Transfusion of Nonautologous Red Blood Cells into Peripheral Vein, Percutaneous Approach (ICD-10-PCS; principal; 2024-12-09)
DX: D64.89 Other specified anemias (principal); E86.1 Hypovolemia; E11.9 Type 2 diabetes mellitus without complications; I10 Essential (primary) hypertension; Z98.61 Coronary angioplasty status
CPT/HCPCS: 85025; 80048; 36415; 86900; 83735; 86850; 85610; 86901; 80076; 86920 ×2; 84484; 83690; 83880; 72191; 74175; 74176; 99285; 36430; Q9967; J1938; J2470 ×2; P9016 ×2; J7050 ×2; 93005

== ENCOUNTER 2025-01-07 17:36 | Emergency (ER) | payer OTHER ==
[2025-01-07 18:03] LABS: Absolute Lymphocytes (CBC) 0.9 K/uL (0.7-4.9); Hematocrit 26.2 % (39.6-49.0); Hemoglobin 8.2 g/dL (13.6-17.9); MCH 26.9 pg (27.0-35.0); MCHC 31.3 g/dL (32.0-36.0); MCV 86.1 fL (80-100); MPV 7.8 fL (7.6-11.3); Nucleated RBC Absolute Count 0.0 (0-0); Nucleated Red Blood Cells % 0.1 % (0-0); RBC Red Blood Cell Count 3.04 M/uL (4.33-5.43); White Blood Count 5.50 thou/uL (4.3-10.9)
[2025-01-07 18:22] LABS: PT Prothrombin Time 13.6 SECONDS (10-13.0); Protime INR 1.21
[2025-01-07] MEDS ORDERED: HYDROCORTISONE SUC 100 MG INJ ONE (18:30)
--- NOTE | 2025-01-07 18:31 | RAD REPORT ---
EXAMINATION: ONE VIEW CHEST XR CLINICAL INDICATION: COUGH TECHNIQUE: Frontal chest projection is submitted. Examination is limited by patient positioning and t echnique. COMPARISON: 12/09/2024 FINDINGS: Moderate bilateral pulmonary opacities likely representing pulmonary edema. Small to moderate bilater al pleural effusions, greater on the left. The cardiac silhoutte is severely enlarged in size. No displaced fractures identified. Aortic atherosclerosis. IMPRESSION: Moderate CHF versus volume overload.
[2025-01-07 18:33] LABS: ALT/SGPT 16.0 U/L (16-61); AST/SGOT 20.0 U/L (15-37); Albumin 2.8 g/dL (3.4-5.0); Albumin/Globulin Ratio 0.7 (1.1-1.8); Alkaline Phosphatase 57.0 U/L (45-117); Anion Gap 5.5 mEq/L (5.0-15.0); BUN Blood Urea Nitrogen 35.0 mg/dL (7-18); Bilirubin Indirect, Calculated 0.2 mg/dL (0.2-0.8); Globulin 4.1 g/dL (2.3-3.5); Glucose Level 105.0 mg/dL (74-106); Magnesium 2.4 mg/dL (1.6-2.4); NT PRO-BNP 10972.0 pg/mL (<450); Potassium 4.5 mEq/L (3.5-5.1); Troponin High Sensitivity 40.3 pg/mL (<58.9)
[2025-01-07 18:53] LABS: Influenza A Ag Negative; Influenza B Ag Negative; SARS-CoV-2 Antigen Rapid Res Negative (Negative)
--- NOTE | 2025-01-07 18:59 | RAD REPORT ---
EXAM: CT brain without contrast HISTORY: MENTAL STATUS CHANGE COMPARISON: None TECHNIQUE: Multiple contiguous axial images were obtained and a CT of the brain without contrast. Sag ittal and coronal reformats were performed. One or more of the following dose reduction techniques were used: Automated exposure control, adjust ment of the mA and/or kV according to patient size, and/or iterative reconstruction. FINDINGS: No evidence of hydrocephalus, intracranial hemorrhage, or extra-axial fluid collection. Moderate brain atrophy with moderate periventricular and deep white matter chronic microvascular isc hemic changes present. 11 mm area hypodensity right basal ganglia likely old lacunar infarct. No evidence of midline shift or areas of brain edema. The calvarium is intact. 2.6 cm polyp versus mucous retention cyst right maxillary antrum. Left verte bral atherosclerosis. IMPRESSION: No evidence of acute intracranial abnormality.
[2025-01-07] MEDS ORDERED: GLUCAGON 1 MG/VIAL ONE (19:29)
[2025-01-07] MEDS ORDERED: D50W 25 GM/50 ML SYRINGE IV ONE (19:29)
[2025-01-07] MEDS ORDERED: FUROSEMIDE 40 MG/4 ML VIAL ONE (20:32)
--- NOTE | 2025-01-07 21:49 | EDPHYS ---
Physician Documentation [facility] Name: Ezequiel Lemus Age: 89 yrs Sex: Male : 1935 Arrival Date: 01/07/2025 Time: 17:36 Bed 8 Private MD: ED Physician Jonah Trimble HPI: 01/07 17:50 This 89 yrs old Male presents to ER via EMS with complaints of Low Blood Sugar.cp 17:50 The patient or guardian reports hyperglycemia, that was potentially precipitated by cp medications. Onset: The symptoms/episode began/occurred today. 17:50 Associated signs and symptoms: Pertinent negatives: diarrhea, vomiting, fever, chest cp pain and/or abdominal pain. 17:50 Patient is a 89-year-old male with past medical history significant for diabetes who cp presents to the emergency department with reported hypoglycemia. Patient is currently taking Jardiance, Trulicity and glimepiride for his diabetes. Historical: - Allergies: 18:00 No Known Allergies; iw - Home Meds: 18:23 glimepiride 4 mg Oral tablet every morning [Active]; furosemide 40 mg Oral tablet daily iw [Active]; allopurinol 100 mg Oral tablet daily [Active]; tamsulosin 0.4 mg oral capsule daily [Active]; Trulicity 1.5 mg/0.5 mL subcutaneous Pen Injector every week [Active]; Jardiance 25 mg oral tablet every morning [Active]; pravastatin 80 mg oral tablet daily [Active]; pantoprazole 40 mg oral tablet, delayed release (enteric coated) daily [Active]; - PMHx: 18:00 Diverticulitis; gastric ulcer; Gastroesophageal reflux disease; H Pylori; iw Hypercholesterolemia; Hypertensive disorder; diabetes mellitus; coronary atherosclerosis; - PSHx: 18:00 Coronary Angioplasty; Cholecystectomy; Operative procedure on knee; Repair of inguinal iw hernia; Stented artery; - Infectious Disease History:: Denies. ROS: 17:55 Constitutional: Negative for body aches, chills, fever, poor PO intake, cp 17:55 Eyes: Negative for injury, pain, redness, and discharge, cp 17:55 Cardiovascular: Positive for edema, Negative for chest pain, 17:55 Respiratory: Negative for cough, shortness of breath, wheezing, 17:55 Abdomen/GI: Negative for abdominal pain, vomiting, diarrhea, constipation, 17:55 Neuro: Negative for headache, 17:55 All other systems are negative, Exam: 18:00 Constitutional: The patient appears in no acute distress, alert, awake, cp non-diaphoretic, non-toxic, well developed, well nourished, obese, 18:00 Head/Face: Normocephalic, atraumatic. cp 18:00 Eyes: Periorbital structures: appear normal, Conjunctiva: normal, no exudate, no injection, Sclera: no appreciated abnormality, Lids and lashes: appear normal, bilaterally, 18:00 ENT: External ear(s): are unremarkable, Nose: is normal, Mouth: Lips: moist, Oral mucosa: moist, Posterior pharynx: Airway: no evidence of obstruction, patent, 18:00 Neck: ROM/movement: is normal, is supple, without pain, no range of motions limitations, 18:00 Chest/axilla: Inspection: normal, 18:00 Cardiovascular: Rate: normal, Rhythm: regular, JVD: is not appreciated, 18:00 Respiratory: the patient does not display signs of respiratory distress, Respirations: normal, no use of accessory muscles, no retractions, labored breathing, is not present, Breath sounds: decreased breath sounds, that are mild, throughout, 18:00 Abdomen/GI: Inspection: obese Palpation: abdomen is soft and non-tender, in all quadrants, 18:00 Back: pain, is absent, ROM is normal, 18:00 Musculoskeletal/extremity: mild bilateral lower leg edema. 18:00 Skin: cellulitis, is not appreciated, no rash present. 18:00 Neuro: Orientation: to person, situation, Mentation: able to follow commands, Motor: moves all fours, no focal deficits, Sensation: no obvious gross deficits, 18:25 ECG was reviewed by the Attending Physician. cp Vital Signs: 17:59 BP 126 / 74; Pulse 78; Resp 19; Temp 98.1; Pulse Ox 100% on R/A; iw 19:38 BP 107 / 63; Pulse 76; Resp 18; Pulse Ox 100% ; mf3 21:06 BP 122 / 60; Pulse 79; Resp 18; Pulse Ox 100% on R/A; mf3 22:08 BP 116 / 64; Pulse 73; Resp 18 S; Pulse Ox 100% on R/A; lg3 MDM: 17:37 Medical Screening Exam initiated cp 19:00 Differential diagnosis: DKA, hyperglycemia, hypothyroidism, acute IL, electrolyte cp abnormality, uti, CVA. 21:47 Data reviewed: vital signs, nurses notes, lab test result(s), EKG, radiologic studies, cp CT scan, plain films, and as a result, I will discharge patient. 21:48 I considered the following discharge prescriptions or medication management in the emergency department Medications were administered in the Emergency Department. See MAR. 21:48 Care significantly affected by the following chronic conditions: Diabetes, Congestive cp Heart Failure, Obesity. Counseling: I had a detailed discussion with the patient and/or guardian regarding the historical points, exam findings, and any diagnostic results supporting the discharge/admit diagnosis, lab results, radiology results, to return to the emergency department if symptoms worsen or persist or if there are any questions or concerns that arise at home. Response to treatment: the patient's symptoms have markedly improved after treatment, and as a result, I will discharge patient. ED course: VSS. Repeat glucose over 200. No signs of respiratory distress and patient is on home oxygen. Will discharge to home for continued monitoring. 01/07 17:44 Order name: COVID-19 Ag + Flu A+B Ag; Complete Time: 19: 01/07 17:44 Order name: Basic Metabolic Panel; Complete Time: : 01/07 19: Interpretation: Normal except: CL 97; CO2 39; BUN 35; CRE 1.38; GFR 49; CA 8.0. 01/07 17:44 Order name: CBC with Diff; Complete Time: 18:28 01/07 18:28 Interpretation: Normal except: RBC 3.04; HGB 8.2; HCT 26.2; MCH 26.9; MCHC 31.3; RDW cp 17.6. 01/07 17:44 Order name: LFT's; Complete Time: 19: 01/07 21:42 Interpretation: Normal except: ALB 2.8; GLOB 4.1; A/G 0.7. 01/07 17:44 Order name: Magnesium; Complete Time: 19: 01/07 17:44 Order name: NT PRO-BNP; Complete Time: 19: 01/07 19: Interpretation: Reviewed. 01/07 17:44 Order name: PT-INR; Complete Time: 18:28 cp 01/07 17:44 Order name: Troponin HS; Complete Time: 19:26 cp 01/07 18:39 Order name: Glucose, Ancillary Testing; Complete Time: 19:26 EDMS 01/07 19:33 Order name: Glucose, Ancillary Testing; Complete Time: 20:24 EDMS 01/07 20:34 Order name: Glucose, Ancillary Testing; Complete Time: 21:42 EDMS 01/07 21:50 Order name: Glucose, Ancillary Testing EDMS 01/07 17:44 Order name: XRAY Chest (1 view); Complete Time: 19:26 cp 01/07 18:28 Order name: CT Head Brain wo Cont; Complete Time: 19:26 cp 01/07 17:44 Order name: Cardiac monitoring; Complete Time: 18:04 cp 01/07 17:44 Order name: EKG - Nurse/Tech; Complete Time: 18:23 cp 01/07 17:44 Order name: IV Saline Lock; Complete Time: 18:05 cp 01/07 17:44 Order name: Labs collected and sent; Complete Time: 18:05 cp 01/07 17:44 Order name: O2 Per Protocol; Complete Time: 18:05 cp 01/07 17:44 Order name: O2 Sat Monitoring; Complete Time: 18:05 cp EC:25 Rate is 77 beats/min. Rhythm is regular. SC interval is prolonged at 232 msec. QRS cp interval is prolonged at 136 msec. QT interval is normal. T waves are Inverted in lead aVR. Interpreted by me. Reviewed by me. Administered Medications: 17:45 CANCELLED (Physician Discretion): glucagon1 mg IVP once cp 18:37 Drug: Solu-CORTEF IVP 50 mg IVP once Route: IVP; Site: right antecubital; iw 20:37 Follow up: Response: No adverse reaction cp4 19:37 Drug: D50W IVP 50 ml IVP once; (1 amp) Route: IVP; Site: right antecubital; mf3 20:37 Follow up: Response: No adverse reaction cp4 19:38 Drug: Glucagon IVP 1 mg IVP once Route: IVP; Site: right hand; mf3 20:37 Follow up: Response: No adverse reaction cp4 20:36 Drug: Furosemide IVP 40 mg IVP once; give over 2 minutes Route: IVP; Site: right cp4 antecubital; 21:41 Follow up: Response: No adverse reaction cp4 Disposition: 01/08 07:31 Co-signature as Attending Physician, Jonah Trimble MD I reviewed the patient's care rn provided by the Advanced Practice Provider and agree with the diagnosis and treatment plan. Disposition Summary: 01/07/25 21:48 Discharge Ordered Notes: Location: Home cp Problem: an acute exacerbation cp Symptoms: have improved cp Condition: Stable cp Diagnosis - Diabetes mellitus due to underlying condition with hypoglycemia without coma cp - Unspecified combined systolic (congestive) and diastolic (congestive) heart failure cp Followup: cp - With: Kobe Ward MD - When: 1 - 2 days - Reason: Recheck today's complaints Discharge Instructions: - Discharge Summary Sheet cp - Heart Failure, Diagnosis cp - Hypoglycemia cp - Daily Diabetes Mellitus Record cp - Blood Glucose Monitoring, Adult cp Forms: - Medication Reconciliation Form cp - Antibiotic Education cp - Prescription Opioid Use cp - Patient Portal Instructions cp - Leadership Thank You Letter cp Signatures: Dispatcher [employer] Nieves Barber, RN Jonah Otto MD MD rn Page, Corey PA-C PA-C cp Elaine Rincon cp4 Qian Dominique RN RN mf3 Corrections: (The following items were deleted from the chart) 01/07 17:45 17:44 Glucagon IVP 1 mg IVP once ordered. cp cp 17:45 17:45 COVID-19 Ag + Flu A+B Ag+I.LAB.BRZ ordered. EDMS EDMS 17:45 17:45 BASIC METABOLIC PANEL+C.LAB.BRZ ordered. EDMS EDMS 17:45 17:45 CBC+H.LAB.BRZ ordered. EDMS EDMS 17:45 17:45 HEPATIC FUNCTION+C.LAB.BRZ ordered. EDMS EDMS 17:45 17:45 MAGNESIUM+C.LAB.BRZ ordered. EDMS EDMS 17:45 17:45 PROBNP+C.LAB.BRZ ordered. EDMS EDMS 17:45 17:45 PROTIME (+INR)+COAG.LAB.BRZ ordered. EDMS EDMS 17:45 17:45 Troponin High Sensitivity+C.LAB.BRZ ordered. EDMS EDMS 17:45 17:45 UA Rfx Jack Cult if indicated+U.LAB.BRZ ordered. EDMS EDMS 17:45 Chest Single View+RAD.RAD.BRZ ordered. EDMS EDMS
--- NOTE | 2025-01-07 21:49 | ER ---
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 Coronavirus screen: At this time, the client does not indicate any symptoms associated with coronavirus-19. Ebola Screen: No symptoms or risks identified at this time. Initial Sepsis Screen: Does the patient meet any 2 criteria? No. Patient's initial sepsis screen is negative. Does the patient have a suspected source of infection? No. Patient's initial sepsis screen is negative. Risk Assessment: Do you want to hurt yourself or someone else? Patient reports no desire to harm self or others. Onset of symptoms was January 07, 2025. 17:59 Acuity: JEANA 3 iw 17:59 Method Of Arrival: EMS: [facility] iw Historical: - Allergies: 18:00 No Known Allergies; iw - Home Meds: 18:23 glimepiride 4 mg Oral tablet every morning [Active]; furosemide 40 mg Oral tablet daily iw [Active]; allopurinol 100 mg Oral tablet daily [Active]; tamsulosin 0.4 mg oral capsule daily [Active]; Trulicity 1.5 mg/0.5 mL subcutaneous Pen Injector every week [Active]; Jardiance 25 mg oral tablet every morning [Active]; pravastatin 80 mg oral tablet daily [Active]; pantoprazole 40 mg oral tablet, delayed release (enteric coated) daily [Active]; - PMHx: 18:00 Diverticulitis; gastric ulcer; Gastroesophageal reflux disease; H Pylori; iw Hypercholesterolemia; Hypertensive disorder; diabetes mellitus; coronary atherosclerosis; - PSHx: 18:00 Coronary Angioplasty; Cholecystectomy; Operative procedure on knee; Repair of inguinal iw hernia; Stented artery; - Infectious Disease History:: Denies. Screenin:01 [facility] ED Fall Risk Assessment (Adult) History of falling in the last 3 months, iw including since admission No falls in past 3 months (0 pts) Confusion or Disorientation No (0 pts) Intoxicated or Sedated No (0 pts) Impaired Gait Yes (1 pt) Mobility Assist Device Used Yes (1 pt) Altered Elimination No (0 pt) Score/Fall Risk Level 0 - 2 = Low Risk Oriented to surroundings, Maintained a safe environment. Abuse screen: Denies threats or abuse. Nutritional screening: No deficits noted. Tuberculosis screening: No symptoms or risk factors identified. Assessment: 18:00 General: Appears in no apparent distress. Behavior is calm, cooperative. Pain: Denies iw pain. Neuro: Level of Consciousness is awake, alert, obeys commands, Oriented to person, place, time, Moves all extremities. Cardiovascular: Cardiovascular: Edema is 2+ to left ankle, left foot, right ankle and right foot. Respiratory: Respiratory effort is even, labored, Respiratory pattern is regular. Derm: Skin. 18:26 Reassessment: family states pt has just started back on his Trulicity on , had iw been off of it since November 28, had recent Gi bleed/gastric ulcer/diverticulitis , sees . 19:38 General: Appears in no apparent distress. comfortable, Behavior is calm, cooperative, mf3 appropriate for age. Pain: Denies pain. Neuro: Level of Consciousness is awake, alert, obeys commands, Oriented to. Cardiovascular: Capillary refill < 3 seconds. Respiratory: Airway is patent Trachea midline Respiratory effort is even, unlabored. GI: No signs and/or symptoms were reported involving the gastrointestinal system. : No signs and/or symptoms were reported regarding the genitourinary system. 22:08 Reassessment: Patient appears in no apparent distress at this time. No changes from lg3 previously documented assessment. Patient and/or family updated on plan of care and expected duration. Pain level reassessed. Patient is alert, oriented x 3, equal unlabored respirations, skin warm/dry/pink. Patient states feeling better. Patient states symptoms have improved. Vital Signs: 17:59 BP 126 / 74; Pulse 78; Resp 19; Temp 98.1; Pulse Ox 100% on R/A; iw 19:38 BP 107 / 63; Pulse 76; Resp 18; Pulse Ox 100% ; mf3 21:06 BP 122 / 60; Pulse 79; Resp 18; Pulse Ox 100% on R/A; mf3 22:08 BP 116 / 64; Pulse 73; Resp 18 S; Pulse Ox 100% on R/A; lg3 ED Course: 17:37 Patient arrived in ED. aa5 17:37 Julio César Arita PA-C is PHCP. cp 17:37 Jonah Trimble MD is Attending Physician. cp 17:59 Nieves Mustafa, JOE is Primary Nurse. iw 18:00 Triage completed. iw 18:00 Arm band placed on. iw 18:00 Initial lab(s) drawn, by me, sent to lab. Inserted saline lock: 20 gauge in right iw antecubital area, using aseptic technique. Blood collected. Flushed with 10 mL NS. 18:02 Patient has correct armband on for positive identification. iw 18:28 XRAY Chest (1 view) In Process Unspecified. EDMS 18:28 Maintain EMS IV. Dressing intact. Site clean \T\ dry. Gauge \T\ site: 20 right hand. iw Flushed with 10 mL NS. 18:53 CT Head Brain wo Cont In Process Unspecified. EDMS 21:48 Kobe Ward MD is Referral Physician. cp 22:09 No provider procedures requiring assistance completed. IV discontinued, intact, lg3 bleeding controlled, No redness/swelling at site. Pressure dressing applied. Administered Medications: 17:45 CANCELLED (Physician Discretion): glucagon1 mg IVP once cp 18:37 Drug: Solu-CORTEF IVP 50 mg IVP once Route: IVP; Site: right antecubital; iw 20:37 Follow up: Response: No adverse reaction cp4 19:37 Drug: D50W IVP 50 ml IVP once; (1 amp) Route: IVP; Site: right antecubital; mf3 20:37 Follow up: Response: No adverse reaction cp4 19:38 Drug: Glucagon IVP 1 mg IVP once Route: IVP; Site: right hand; mf3 20:37 Follow up: Response: No adverse reaction cp4 20:36 Drug: Furosemide IVP 40 mg IVP once; give over 2 minutes Route: IVP; Site: right cp4 antecubital; 21:41 Follow up: Response: No adverse reaction cp4 Medication: 18:02 VIS not applicable for this client. iw Outcome: 21:48 Discharge ordered by . 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 Demonstrated understanding of instructions, follow-up care, 22:09 Patient left the ED. lg3 Signatures: Dispatcher [employer] EDNieves Cooper RN RN iw Chitra Summers RN RN aa5 Julio César Arita, PA-C PA-C Stormy Stone, RN RN lg3 Elaine Rincon cp4 Qian Dominique RN RN mf3
[2025-01-07 22:31] VITALS: TEMP 98.1; O2SAT 100
[2025-01-07 22:36] VITALS: BP 116/64
== END 2025-01-07 22:09 | disposition home or self-care (01) ==
LOC: ER 17:36
DX: I11.0 Hypertensive heart disease with heart failure (principal); I50.40 Unspecified combined systolic (congestive) and diastolic (congestive) heart failure; E08.649 Diabetes mellitus due to underlying condition with hypoglycemia without coma; Z11.52 Encounter for screening for COVID-19
CPT/HCPCS: 93005; 85025; 80048; 36415; 83735; 85610; 82947 ×4; 80076; 84484; 83880; 70450; 71045; 99284; 87428; J1610; J1938; J1720